=== PATIENT | male | born 1985 | race Caucasian/White ===

== ENCOUNTER 2017-07-26 14:21 | Emergency (ER) | payer OTHER ==
[~2017-07-26] VITALS: Ht 175.3 cm; Wt 86.2 kg
[~2017-07-26 14:21] MED LIST: ACULAR5 ML OPH; AFRIN15 ML NASB; AMOXICILLIN875 M1 PO; IBUPROFEN600 M1 PO; NAPHCON-A EYE D15 ML OS; NASONEX17 GM NASB; POLYTRIM EYE DR10 ML OS; PREDNISONE10 M2 PO; PREDNISONE20 M1 PO; TESSALON PERLE100 M1 PO
[2017-07-26 14:26] VITALS: BP 131/78
--- NOTE | 2017-07-26 14:55 | ED SKIN/ALLERGY COMPLAINT ---
History of Present Illness General Chief Complaint: Skin Rash/ Abcess Stated Complaint: INFECTED? WOUND ON ABD Source: patient Exam Limitations: no limitations Vital Signs & Intake/Output Vital Signs & Intake/Output Vital Signs Date Time Temp Pulse Resp B/P B/P Pulse O2 O2 Flow FiO2 Mean Ox Delivery Rate 07/26 1426 98.7 99 20 131/78 97 Room Air Allergies Uncoded Allergies: MAY FLYS (11/06/10) YELLOW JACKETS (11/06/10) Reconcile Medications Amoxicillin 400 MG/5 ML SUSP.RECON 10 ML PO BID CELLULITIS Permethrin 5 % CREAM..G. 1 JAKOB TOP ONCE SCABBIES massage into skin from head to soles of feet one time, leave on for 8-14 hours then remove by thorough washing Sulfamethoxazole/Trimethoprim (Bactrim Ds Tablet) 800 MG-160 MG TABLET 1 TAB PO BID CELLULITIS Triage Note: PT TO ED C/O ? INFECTION NEAR BELLY BUTTON. PT STATES HE PULLED AN INGRON HAIR OUT LAST WEEK. STATES OVER THE WEEKEND HE NOTICED A REDDENED AREA, WARM TO TOUCH WITH DISCHARGE. AFEBRILE. Triage Nurses Notes Reviewed? yes Onset: Gradual Duration: day(s): Timing: recent history Severity: moderate Location: abdomin HPI: 31yo male presents to ED complaining of infected area on abdomen following ingrown hair. Patient states that last week he noticed a small pimple on his abdomen which he thought might be an ingrown hair. He pulled out the hair however noticed increasing swelling and redness to this area. Over the past few days he has noticed redness spreading to skin around this area and increasing pain. Patient states that he has squeezed the area and expressed purulent discharge this morning. Patient denies abdominal pain, nausea, vomiting, fevers. (Lotus STEVENSON,Gisela Riley) Past History Travel History Traveled to [place] past 21 day No Medical History Any Pertinent Medical History? 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 No (Gisela Gonzalez) Review of Systems Review of Systems Constitutional: Reports: no symptoms. EENTM: Reports: no symptoms. Respiratory: Reports: no symptoms. Cardiovascular: Reports: no symptoms. GI: Reports: no symptoms. Genitourinary: Reports: no symptoms. Musculoskeletal: Reports: no symptoms. Skin: Reports: see HPI. Neurological/Psychological: Reports: no symptoms. Hematologic/Endocrine: Reports: no symptoms. Immunologic/Allergic: Reports: no symptoms. All Other Systems: Reviewed and Negative (Gisela Gonzalez) Physical Exam Physical Exam General Appearance: well developed/nourished, no apparent distress, alert, awake Head: atraumatic, normal appearance Eyes: Bilateral: normal appearance. Ears, Nose, Throat: hearing grossly normal Neck: normal inspection, supple, full range of motion Respiratory: no respiratory distress Gastrointestinal: erythema and induration to skin of left lower abdomen and umbilicus, central crusting area without fluctuance, +tenderness +warmth Back: normal inspection, normal range of motion Extremities: normal range of motion Neurologic/Psych: awake, alert, oriented x 3 Skin: see erythema as noted to abdomen above (Gisela Gonzalez) Progress Differential Diagnosis: abscess/cellulitis, allergic reaction, contact dermatitis, shingles, urticaria Plan of Care: There is no area of fluctuance for I&D at this time. Skin the abdomen is erythematous, indurated, consistent with cellulitis. Needle aspiration was attempted at site of crusting however no purulent material was drained from site , small amount of blood was drained. Patient started on appropriate antibiotics and area was circled with skin marker. Patient instructed on skin hygiene and warm compresses. He will return in 2 days for reevaluation. Patient informed that he may require I&D at that time. The patient is in no acute distress, nontoxic appearing, vital signs are stable. The patient agrees with the plan of care. (Gisela Gonzalez) Departure Departure Disposition: HOME OR SELF CARE Condition: Stable Clinical Impression Primary Impression: Abdominal wall cellulitis Secondary Impressions: Abscess, Rash Referrals: Roland GORDON,Devin Cueva (PCP/Family) Gio GORDON,Chikis Chamorro Additional Instructions: Take antibiotics as prescribed. Begin antibiotics today. Warm compresses frequently throughout the day to help bacteria out. Jo soap and water. Return in 2 days for skin check. Return sooner if he develops worsening rash, fevers, abdominal pain. Please note that there might be incidental findings in your evaluation that are unrelated to the current emergency department visit. Please notify your primary care doctor about this emergency department visit in order to obtain and review all of the testing performed so that these incidental findings can be monitored as needed. If you had an x-ray performed, please understand that some fractures may not be seen on the initial set of x-rays. If your symptoms persist you might need a repeat set of x-rays to check for such a fracture. If you had a laceration evaluated, please understand that foreign bodies such as glass or wood may not be visible to the naked eye or on plain x-rays. If the wound becomes red, swollen, increasingly more painful or if there is any drainage from the wound, please have it reevaluated by a physician for the possibility of a retained foreign body. If you're unable to follow up as outlined in the discharge instructions please return to the emergency department. Thank you for choosing the [facility] Emergency Department for your care. It was a pleasure to serve you today. Departure Forms: Customer Survey General Discharge Information Prescriptions: Current Visit Scripts Sulfamethoxazole/Trimethoprim (Bactrim Ds Tablet) 1 TAB PO BID #20 TAB Amoxicillin 10 ML PO BID #200 ML Permethrin 1 JAKOB TOP ONCE #60 GM massage into skin from head to soles of feet one time, leave on for 8-14 hours then remove by thorough washing (Lotus STEVENSON,Gisela Riley) PA/PHYSICS TECHNICAL OFFICER Co-Sign Statement Statement: ED Attending supervision documentation- I saw and evaluated the patient. I have also reviewed all the pertinent lab results and diagnostic results. I agree with the findings and the plan of care as documented in the PA's/PHYSICS TECHNICAL OFFICER's documentation. X I have reviewed the ED Record and agree with the PA's/PHYSICS TECHNICAL OFFICER's documentation. [] Additions or exceptions (if any) to the PAs/PHYSICS TECHNICAL OFFICER's note and plan are summarized below: [] (Angie GORDON,Jak)
[2017-07-26] MEDS ORDERED: BACTRIM DS TAB1 EACH PO (15:02)
[2017-07-26] MEDS ORDERED: PERMETHRIN60 GM TOP (15:02)
[2017-07-26] MEDS ORDERED: AMOXICILLI400 MG/51 PO (15:02)
== END 2017-07-26 15:12 ==
LOC: ERH 14:21
DX: L03.311 Cellulitis of abdominal wall (principal); L02.211 Cutaneous abscess of abdominal wall

== ENCOUNTER 2017-07-28 14:12 | Emergency (ER) | payer OTHER ==
[~2017-07-28] VITALS: Ht 175.3 cm; Wt 86.2 kg
[~2017-07-28 14:12] MED LIST changes: +AMOXICILLI400 MG/51 PO; +BACTRIM DS TAB1 EACH PO; +PERMETHRIN60 GM TOP
[2017-07-28 14:19] VITALS: BP 122/86
--- NOTE | 2017-07-28 14:43 | ED ANIMAL BITE/WOUND CHECK ---
History of Present Illness General Chief Complaint: Suture Removal/Wound Recheck Stated Complaint: WOUND CHECK Source: patient Exam Limitations: no limitations Vital Signs & Intake/Output Vital Signs & Intake/Output Vital Signs Date Time Temp Pulse Resp B/P B/P Pulse O2 O2 Flow FiO2 Mean Ox Delivery Rate 07/28 1419 98.9 87 18 122/86 97 Room Air Allergies Uncoded Allergies: MAY FLYS (11/06/10) YELLOW JACKETS (11/06/10) Reconcile Medications Amoxicillin 400 MG/5 ML SUSP.RECON 10 ML PO BID CELLULITIS Permethrin 5 % CREAM..G. 1 JAKOB TOP ONCE SCABBIES massage into skin from head to soles of feet one time, leave on for 8-14 hours then remove by thorough washing Sulfamethoxazole/Trimethoprim (Bactrim Ds Tablet) 800 MG-160 MG TABLET 1 TAB PO BID CELLULITIS Triage Note: RECEIVED 31 YO MALE WAS SEEN HERE 2 DAYS AGO FOR ABSCESS TO LEFT ABDOMINAL AREA. PT INSTRUCTED TO RETURN TODAY FOR RE-EVALUATION. WOUND STARTED ONE WEEK AGO, BECAME RED LAST WEDNESDAY. Triage Nurses Notes Reviewed? yes Onset: Abrupt Duration: day(s): Timing: recent history Injury Environment: home No Modifying Factors: none HPI: 31-year-old male comes into the emergency room for further evaluation of swelling and pain in the lower abdomen. Patient was seen here the other day and diagnosed with an abscess. She was placed on 2 oral antibiotics. Comes back in due to increased swelling and pain. They did a needle aspiration the other day. (Loc Gann) Past History Travel History Traveled to [place] past 21 day No Medical History Any Pertinent Medical History? 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 No (Loc Gann) Review of Systems Review of Systems Constitutional: Reports: no symptoms. EENTM: Reports: no symptoms. Respiratory: Reports: no symptoms. Cardiovascular: Reports: no symptoms. GI: Reports: no symptoms. Genitourinary: Reports: no symptoms. Musculoskeletal: Reports: no symptoms. Skin: Reports: see HPI. Neurological/Psychological: Reports: no symptoms. Hematologic/Endocrine: Reports: no symptoms. Immunologic/Allergic: Reports: no symptoms. All Other Systems: Reviewed and Negative (Loc Gann) Physical Exam Physical Exam General Appearance: well developed/nourished, mild distress Head: atraumatic Eyes: Bilateral: normal appearance. Ears, Nose, Throat: normal ENT inspection, hearing grossly normal Neck: normal inspection Respiratory: no respiratory distress Cardiovascular: regular rate/rhythm Back: normal inspection Extremities: normal range of motion Neurologic/Psych: awake, alert, oriented x 3, normal mood/affect Skin: intact, normal color, large erythematous patch over lower abdomen, swelling, induration, center area of purulent appearing pustule, (Loc Gann) Progress Differential Diagnosis: abscess, cellulitis, joint infection, tenosysnovitis Plan of Care: Orders Procedure Date/time Status TRUNK AREA CULTURE 07/28 1513 Active Microbiology 07/28 144 TRUNK: Culture & Sensitivity - RECD 07/28 144 TRUNK: Gram Stain - RECD Comments: 07/28/2017 3:47:00 PM Patient clinically looks well. Patient is no apparent distress. Tolerated procedure. (Loc Gann) Departure Departure Disposition: HOME OR SELF CARE Condition: Stable Clinical Impression Primary Impression: Abscess of skin of abdomen Secondary Impressions: Cellulitis Referrals: Roland GORDON,Devin Cueva (PCP/Family) Additional Instructions: Continue taking oral antibiotics. Return today for packing removal. Return sooner if any fever vomiting chills or any other concerns. Please go over all results of today's visit with your primary care doctor. Contact your primary care doctor to let them know you were here in the emergency room. There may be nonspecific findings which may not be related to your visit today here in the emergency room but may require further evaluation and chronic monitoring by your primary care doctor. If you had a laceration today the chance of foreign body always remains. You should follow-up with your primary care doctor for recheck in 3-5 days for a wound check. If you had an x-ray done there is a chance that a fracture could have been missed on initial read and you should follow-up with your primary care doctor for repeat x-rays if symptoms persist. If your blood pressure was elevated here in the emergency room please have rechecked by [facility] primary care doctor within the next 48. If you were prescribed a narcotic here in the emergency room or any type of controlled substances you're not allowed to drive while taking this medication or operate any type of heavy machinery. Narcotics can make you feel lightheaded dizziness nausea and can cause constipation. You may need to grain picker a stool softener. Thank you for choosing [facility] emergency room. Please return to the emergency room immediately if you have any other concerns worsening of symptoms. Departure Forms: Customer Survey General Discharge Information (Loc Gann) PA/PLASTIC WELDER Co-Sign Statement Statement: ED Attending supervision documentation- [] I saw and evaluated the patient. I have also reviewed all the pertinent lab results and diagnostic results. I agree with the findings and the plan of care as documented in the PA's/PLASTIC WELDER's documentation. [X] I have reviewed the ED Record and agree with the PA's/PLASTIC WELDER's documentation. [] Additions or exceptions (if any) to the PAs/PLASTIC WELDER's note and plan are summarized below: [] (Guillermo WAGGONER,Alfonzo Carrasco) Procedures Incision and Drainage Site: Lower abdomen Blade Size: 15 I & D Procedure: Yes: betadine prep, sterile drapes applied, sterile dressing applied, wick placed. Progress: Approximately 5 mL of purulent discharge expressed, (Loc Gann)
== END 2017-07-28 15:01 ==
LOC: ERH 14:12
DX: L02.211 Cutaneous abscess of abdominal wall (principal); L03.311 Cellulitis of abdominal wall
CPT/HCPCS: 87184; 87070; 87147; J2001

== ENCOUNTER 2017-07-30 14:53 | Emergency (ER) | payer OTHER ==
[~2017-07-30] VITALS: Ht 175.3 cm; Wt 86.2 kg
[2017-07-30 15:12] VITALS: BP 152/79
--- NOTE | 2017-07-30 15:13 | ED SKIN/ALLERGY COMPLAINT ---
History of Present Illness General Chief Complaint: Suture Removal/Wound Recheck Stated Complaint: WOUND CHECK ABCESS TO ABD Source: patient Exam Limitations: no limitations Vital Signs & Intake/Output Vital Signs & Intake/Output Vital Signs Date Time Temp Pulse Resp B/P B/P Pulse O2 O2 Flow FiO2 Mean Ox Delivery Rate 07/30 1512 98.5 82 16 152/79 97 Room Air Allergies Uncoded Allergies: MAY FLYS (11/06/10) YELLOW JACKETS (11/06/10) Reconcile Medications Amoxicillin 400 MG/5 ML SUSP.RECON 10 ML PO BID CELLULITIS Permethrin 5 % CREAM..G. 1 JAKOB TOP ONCE SCABBIES massage into skin from head to soles of feet one time, leave on for 8-14 hours then remove by thorough washing Sulfamethoxazole/Trimethoprim (Bactrim Ds Tablet) 800 MG-160 MG TABLET 1 TAB PO BID CELLULITIS Triage Note: PT HAS WOUND CHECK OF ABCESS ON ABD. PT TO HAVE PACKING TAKEN OUT TODAY. Triage Nurses Notes Reviewed? yes Onset: Abrupt Duration: better Timing: no prior history Severity: mild Severity Numbers: 1 HPI: Patient's 31-year-old male who presented to emergency room with wound evaluation and recheck of cellulitis and abscess in which old records indicate that earlier this week patient received incision and drainage culture was obtained showing positive MRSA patient has been compliant with amoxicillin and Bactrim patient presented to [place] emergency room 2 days ago for wound recheck packing still in place patient was advised to repeat presents 2 days later Patient denies any fever chills states symptoms of pain and swelling and redness has significantly and almost completely resolved. (Eber Carter) Past History Travel History Traveled to [place] past 21 day No Medical History Any Pertinent Medical History? 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 No (Eber Carter) Review of Systems Review of Systems Constitutional: Reports: no symptoms. EENTM: Reports: no symptoms. Respiratory: Reports: no symptoms. Cardiovascular: Reports: no symptoms. GI: Reports: no symptoms. Genitourinary: Reports: no symptoms. Musculoskeletal: Reports: no symptoms. Skin: Reports: see HPI. Neurological/Psychological: Reports: no symptoms. Hematologic/Endocrine: Reports: no symptoms. Immunologic/Allergic: Reports: no symptoms. All Other Systems: Reviewed and Negative (Eber Carter) Physical Exam Physical Exam General Appearance: no apparent distress, alert, comfortable Head: atraumatic Eyes: Bilateral: normal appearance. Ears, Nose, Throat: hearing grossly normal Neck: normal inspection Respiratory: no respiratory distress Neurologic/Psych: no motor/sensory deficits Diagram Body: 1) Noted 5 mm incision with packing in place mild surrounding induration no fluctuance no active discharge no tenderness no surrounding peritoneal signs (Eber Carter) Progress Differential Diagnosis: abscess/cellulitis, allergic reaction Plan of Care: Vision has been compliant with Bactrim patient with positive MRSA Packing was removed without complications Upon expression of patient's wounds no purulence was produced I reapplied gauze and Tegaderm (Eber Carter) Departure Departure Disposition: HOME OR SELF CARE Condition: Stable Clinical Impression Primary Impression: Wound check, abscess Secondary Impressions: Cellulitis, MRSA (methicillin resistant staph aureus) culture positive Referrals: Roland GORDON,Devin Cueva (PCP/Family) Additional Instructions: As discussed if symptoms worsen or if YOU develop a new concerning symptoms return to emergency room continue previously prescribed antibiotics as directed. Change the dressings once today with the extra bandages provided to the emergency room. Departure Forms: Customer Survey General Discharge Information (Eber Carter) PA/COUNTER POCKET SEWER Co-Sign Statement Statement: ED Attending supervision documentation- [] I saw and evaluated the patient. I have also reviewed all the pertinent lab results and diagnostic results. I agree with the findings and the plan of care as documented in the PA's/COUNTER POCKET SEWER's documentation. [X] I have reviewed the ED Record and agree with the PA's/COUNTER POCKET SEWER's documentation. [] Additions or exceptions (if any) to the PAs/COUNTER POCKET SEWER's note and plan are summarized below: [] (Alfonzo Li DO
== END 2017-07-30 15:44 ==
LOC: ERH 14:53
DX: Z09 Encounter for follow-up examination after completed treatment for conditions other than malignant neoplasm (principal)